=== PATIENT | male | born 1960 | race Caucasian/White ===

== ENCOUNTER 2020-10-06 13:29 | Emergency (ER) | payer OTHER ==
[~2020-10-06] VITALS: Ht 180.3 cm; Wt 150.6 kg
[2020-10-06] MEDS ORDERED: PLAVIX75 MG PO (13:50)
--- NOTE | 2020-10-06 16:53 | NUR ---
MIDLINE/PICC PLACEMENT: ASKED BY DR. QUARLES TO EVALUATE PATIENT FOR A PICC LINE REPLACEMENT AFTER HAVING HIS PREVIOUS PICC LINE ACCIDENTALLY PULLED OUT YESTERDAY. PATIENT CURRENTLY IS LIVING AT [facility] AND RECEIVING IV ABX FOR OSTEOMYELITIS. PATIENT REPORTS THAT HE NEEDED 6 WEEKS TOTAL OF IV ABX FOR THIS INFECTION, BUT HAS ALREADY FINISHED 2 WEEKS OF ABX APPROXIMATELY. AFTER REVIEWING THESE DETAILS WITH THE PATIENT AND INTERVIEWING HIM, NO ABSOLUTE CONTRAINDICATIONS WERE IDENTIFIED. UNAVAILABE AT THIS TIME WAS THE PATIENT'S LAB VALUES OR PLATELETS. PATIENT WAS ABLE TO SIGN A CONSENT FORM. PT'S PREVIOUS PICC WAS IN HIS LEFT UPPER ARM. THERE IS A BRUISE EVIDENT WHERE IT WAS PULLED OUT. PATIENT'S RIGHT ARM WAS THEN EVALUATED AND THE BASILIC, BRACHIAL, AND CEPHALIC WERE ALL IDENTIFIED. WITHOUT A TOURNIQUET, THE 4 FR WOULD APPROXIMATELY ONLY TAKE UP 28% OF THE VEIN DIAMETER, THEREFORE THIS WAS CHOSEN THE FIRST CHOICE FOR A PICC. AFTER FOLLOWING CDC RECOMMENDED GUIDELINES FOR STERILE PROCEDURE, JULIA'S RIGHT ARM WAS PREPPED. PATIENT'S BASILIC VEIN WAS ATTEMPTED EASILY ON THE SECOND ATTEMPT WITH BRISK, NON PULSATILE, DARK BLOOD RETURNED. GUIDEWIRE WAS THEN EASILY ADVANCED INTO THE VEIN, FOLLOWED BY THE INTRODUCER. THE PICC WAS THEN ADVANCED, ADN THE SHERORVIBO TIP VERTIFICATION MAGNET WAS UTILIZED. THE PICC TIP DID NOT WANT TO DROP DOWN INTO A CENTRAL LOCATION. ATTEMPTS WERE MADE TO REPOSITION PICC AND READVANCE TO IMPROVE THIS PICTURE, HOWEVER IT STILL DID NOT WANT TO DROP CENTRALLY. A CHEST XRAY WAS THEN TAKEN WHICH SHOWED THE PICC LINE TRAVELING UP, INSTEAD OF DOWN INTO THE CENTRAL VASCULATURE. 3 MORE ATTEMPTS WERE MADE TO PULL LINE BACK UNDER STERILE PROCEDURE AND RE-ADVANCE, BUT ULTIMATELY THIS WAS UNSUCCESSFUL, AND THE PICC LINE CONTINUED TO WANT TO TURN BACK UPON ITSELF. AT THIS POINT, IT WAS DISCUSSED WITH DR. QUARLES, THAT THE MOST REASONABLE THING FOR THIS PATIENT AND THIS IV ACCESS WOULD BE TO EITHER ABANDON THIS SITE, AND RE-TRY ANOTHER SITE, OR PLACE A MIDLINE IN WHERE THIS PICC LINE WAS SINCE THE INTRODUCER WAS STILL IN THE PATIENT'S ARM ALLOWING FOR THE MIDLINE TO EASILY ADVANCE. BEFORE THIS WAS UNDERTAKEN, THE PATIENT WAS CONSULTED AND APPROVAL WAS SOUGHT FROM THE PATIENT TO GO AHEAD AND PLACE THE MIDLINE IN LIEU OF THE PICC LINE. THE MIDLINE WAS TRIMMED TO 13 CM. THE PATIENT'S ARM CIRCUMFERENCE WAS 38 CM. PATIENT GIVEN INSTRUCTIONS ON THIS MIDLINE AND TOLD TO BE ADVOCATING FOR THIS MIDLINE TO BE FLUSHED OFTEN. BLOOD WAS EASILY ASPIRATED FROM THIS LINE, BUT THIS MAY NOT CONTINUE TO BE THE CASE WITH THIS MIDLINE. REPORT CALLED TO ANH LAMAR, UPON PATIENT'S DISCHARGE.
== END 2020-10-06 17:07 | disposition home or self-care (01) ==
LOC: ED 13:29
DX: Z45.2 Encounter for adjustment and management of vascular access device (principal); M86.9 Osteomyelitis, unspecified
CPT/HCPCS: 36569; 71045; 99283-25; C1751

== ENCOUNTER 2020-10-19 11:13 | Emergency (ER) | payer OTHER ==
[~2020-10-19] VITALS: Ht 180.3 cm; Wt 149.7 kg
[~2020-10-19 11:13] MED LIST: PLAVIX75 MG PO
--- OUTSIDE RECORDS SUMMARY | 2020-10-19 11:16 | XMS ---
PreManage Notification: REESE BISHOP Security Quarter Supervisor Events No recent Security Events currently on file CRITERIA MET - [facility] 2 Visits in 30 Days CARE PROVIDERS [facility] [employer]ITAL[facility] Reader. \F\ [employer] PHONE: [phone] MELI CASILLAS Technical Training Coordinator/Supply Chain Program Manager 05/14/2020-Current PHONE: [phone] Frida has no Care Guidelines for this patient. E.Kady VISIT COUNT (12 MO.) [facility] [place] TOTAL 3 NOTE: Visits indicate total known visits. ED/UCC VISIT TRACKING (12 MO.) 10/19/2020 11:13 [facility] TYPE: Emergency COMPLAINT: - DIABETIC ULCER 10/06/2020 13:31 J[facility] Am[facility] TYPE: Emergency COMPLAINT: - PIC LINE REPLACEMENT DIAGNOSES: - Encounter for adjustment and management of vascular access device - Osteomyelitis, unspecified 04/07/2020 20:58 [facility] DIAGNOSES: 0. LT KNEE DISLOCATION VIA TVP INPATIENT VISIT TRACKING (12 MO.) 09/21/2020 15:14 [facility]: Inpatient DIAGNOSES: 0. OSTEOMYELITIS LEFT ANKLE 04/19/2020 12:32 [facility] OR E[facility] TYPE: Orthopedic DIAGNOSES: 0. LEFT PATELLAR TENDON REPAIR LEFT PATELLAR TENDON R [email or web address]
[2020-10-19] MEDS ORDERED: BAYER CHEWABLE81 MG PO (11:43)
--- NOTE | 2020-10-19 18:05 | NUR ---
PICC LINE INSERTION NOTE WAS CALLED TO THE ED TO REPLACE A PT'S MIDLINE THAT WAS PULLED OUT ON ACCIDENT. THE PT REPORTS HE DOES NOT KNOW HOW THE MIDLINE WAS PULLED OUT. HE STATES THE NURSES CHANGED THE PT'S DRESSING AND THE MIDLINE WAS HANGING OUT. DISCUSSED WITH PT THE IMPORTANCE OF BEING CAUTIOUS WITH HIS PICC LINE THIS IS THE SECOND TIME THIS HAS HAPPENED TO HIM. PT STATES UNDERSTANDING. THE PT STATES THE NURSE HAD A HARD TIME TRYING TO PUT A PICC LINE IN HIS RIGHT ARM LAST TIME SO SHE CONVERTED TO A MIDLINE BUT HE HAS HAD A PICC LINE IN THE LEFT ARM BEFORE WITH NO PROBLEMS. THE LEFT ARM WAS EVALUATED FOR THIS REASON. THE BASILIC, BRACHIAL, AND CEPHALIC VEINS WERE ALL IDENTIFIED ALONG WITH THE BRACHIAL ARTERY. THE BASILIC VEIN WAS CHOSEN THE 4 FR PICC LINE WILL ONLY TAKE UP APPROXIMATELY 37% OF THE VEIN ACCORDING TO THE SITE RITE 8. THE BASILIC VEIN WAS ACCESSED ON THE FIRST ATTEMPT. BRISK, DARK, NON PULSITILE BLOOD WAS RETURNED. THE GUIDEWIRE, INTRODUCER, AND PICC LINE ALL ADVANCED EASILY UP THE VEIN. DR. QUARLES SUTURED THE PICC LINE IN PLACE TO HELP PREVENT THE PICC LINE BEING DISLODGED. STERILE FIELD WAS MAINTAINED DURING THE PROCEDURE. STERILE DRESSING APPLIED AND SECURED WELL. A PRESSURE DRESSING WAS APPLIED TO THE SITE THE PT IS ON BLOOD THINNERS AND REPORTS HE HAD SOME OOZING FROM HIS SITE LAST TIME. ANH LAMAR RN, TRUDI, CALLED AND UPDATED. EDUCATED TO REMOVE THE PRESSURE DRESSING WHEN HE RETURNS TO THE FACILITY. ALL QUESTIONS ANSWERED. PT PROVIDED EDUCATION BOOKLET AND ID CARD. PT THANKFUL FOR A PICC LINE BEING PLACED.
== END 2020-10-19 17:58 | disposition home or self-care (01) ==
LOC: ED 11:13
DX: E11.622 Type 2 diabetes mellitus with other skin ulcer (principal); L97.429 Non-pressure chronic ulcer of left heel and midfoot with unspecified severity; Z45.2 Encounter for adjustment and management of vascular access device; E11.9 Type 2 diabetes mellitus without complications; I10 Essential (primary) hypertension; E78.00 Pure hypercholesterolemia, unspecified; Z87.891 Personal history of nicotine dependence; Z79.899 Other long term (current) drug therapy; Z79.82 Long term (current) use of aspirin
CPT/HCPCS: 36569; 71045; 96374; 99283-25; C1751